=== PATIENT | female | born 2000 | race Caucasian/White ===

== ENCOUNTER 2021-12-02 10:20 | Observation (INO) | payer SELFPAY ==
[~2021-12-02] VITALS: Ht 152.4 cm; Wt 64.4 kg
[2021-12-02 11:00] VITALS: BP 94/55
== END 2021-12-02 13:09 | disposition home or self-care (01) ==
LOC: MLD 10:20
PROVIDERS: ADMIT Obstetrics & Gynecology; ATTEND Obstetrics & Gynecology
DX: O26.893 Other specified pregnancy related conditions, third trimester (principal); Z20.822 Contact with and (suspected) exposure to COVID-19; R10.9 Unspecified abdominal pain; Z3A.29 29 weeks gestation of pregnancy
CPT/HCPCS: 76805; 87426; G0378; Q0092; 59025; 81000

== ENCOUNTER 2022-02-22 10:39 | Inpatient (IN) | payer MEDICAID ==
[~2022-02-22] VITALS: Ht 160 cm; Wt 53.0 kg
[2022-02-22] MEDS ORDERED: METHYLERGONOVINE 0.2 MG/ML AMP IM PRN ×2 (12:15→22:35)
[2022-02-22] MEDS ORDERED: CARBOPROST 250 MCG/ML AMP IM PRN (12:15)
[2022-02-22] MEDS ORDERED: LACTATED RINGERS 1,000 ML IV SCH (12:15)
[2022-02-22 13:08] LABS: APPEARANCE,URINE CLEAR (CLEAR); BILIRUBIN,URINE NEGATIVE (NEGATIVE); BLOOD, URINE NEGATIVE (NEGATIVE); COLOR,URINE YELLOW (YELLOW); LEUKOCYTE ESTERASE ,URINE NEGATIVE (NEGATIVE); NITRITE, URINE NEGATIVE (NEGATIVE); UGLUCOSE NEGATIVE (NEGATIVE)
[2022-02-22 13:17] LABS: BARBITURATE, URINE NEGATIVE ng/ml (NEG <=200); BENZODIAZEPINE, URINE NEGATIVE ng/mL (NEG <=200); CANNABINOID, URINE NEGATIVE ng/mL (NEG <=50); COCAINE, URINE NEGATIVE ng/mL (NEG <=300); OPIATE, URINE NEGATIVE ng/mL (NEG <=2000); PHENCYCLIDINE SCREEN,URINE NEGATIVE ng/mL (NEG <=25)
[2022-02-22 13:20] LABS: BASOPHILS % (AUTO) 0.4 % (0.0-2.0); EOSINOPHILS % (AUTO) 0.3 % (0.0-4.0); HEMATOCRIT 35.9 % (36-48); HEMOGLOBIN 11.9 g/dL (12.0-16.0); LYMPHOCYTES # (AUTO) 1.6 K/uL (2.5-16.5); LYMPHOCYTES % (AUTO) 18.5 % (20.5-51.1); MEAN CORPUSCULAR HEMOGLOBIN 28 pg (27-31); MEAN CORPUSCULAR HGB CONC 33 g/dL (33-37); MEAN CORPUSCULAR VOLUME 85.5 fL (80-94); MONOCYTES # (AUTO) 0.6 K/uL (0.8-1.0); NEUTROPHILS # (AUTO) 6.3 K/uL (1.8-7.7); NEUTROPHILS % (AUTO) 73.8 % (42.2-75.2); PLATELET COUNT (AUTO) 162 K/uL (140-450); RED CELL DISTRIBUTION WIDTH 13.4 % (11.6-13.7); WHITE BLOOD COUNT (AUTO) 8.5 K/uL (4.8-10.8)
[2022-02-22 13:33] LABS: ALBUMIN 2.6 g/dL (3.4-5.0); ANION GAP 12.3 (8-16); CARBON DIOXIDE 24.3 mmol/L (21-32); CREATININE 0.5 mg/dL (0.6-1.3); POTASSIUM 3.6 mmol/L (3.5-5.1); TOTAL BILIRUBIN 0.4 mg/dL (0.0-1.0)
[2022-02-22 14:40] LABS: PROTHROMBIN TIME 9.7 secs (10.8-13.4)
[2022-02-22] MEDS ORDERED: MISOPROSTOL 25 MCG TAB VG PRN (14:45)
[2022-02-22] MEDS ORDERED: AMPICILLIN 2,000 MG in NACL 0.9% 100 ML IV ONE (16:30)
[2022-02-22] MEDS ORDERED: AMPICILLIN 2,000 MG VIAL ONE (16:49)
[2022-02-22] MEDS ORDERED: OXYTOCIN 20 UNITS in LACTATED RINGERS 1,000 ML IV SCH (18:25)
[2022-02-22] MEDS ORDERED: MORPHINE SULFATE 2 MG/ML SYR IVP PRN (18:25)
[2022-02-22] MEDS ORDERED: ONDANSETRON 4 MG/2 ML VIAL ONE (18:36)
[2022-02-22] MEDS ORDERED: MORPHINE SULFATE 10 MG/ML VIAL ONE (18:37)
[2022-02-22] MEDS: ONDANSETRON 4 MG/2 ML VIAL IVP PRN ×2 (18:40→23:53)
[2022-02-22] MEDS ORDERED: ROPIVACAINE 0.2%/NS PREMIX 200 ML EPI ONE (19:22)
[2022-02-22] MEDS ORDERED: ROPIVACAINE 0.2%/NS PREMIX 100 ML EPI SCH (19:45)
[2022-02-22] MEDS ORDERED: OXYTOCIN 20 UNITS/LR PREMIX 1,000 ML IV ONE (21:33)
[2022-02-22] MEDS ORDERED: AMPICILLIN 1,000 MG VIAL ONE (21:34)
[2022-02-22] MEDS ORDERED: AMPICILLIN 1,000 MG in NACL 0.9% 50 ML IV SCH (22:00)
[2022-02-22] MEDS ORDERED: oxyCODONE/APAP 5/325 MG 1 TAB TAB PO PRN (22:35)
[2022-02-22] MEDS ORDERED: BENZOCAINE/MENTHOL 20%-0.5% 60 GM CAN TP PRN (22:35)
[2022-02-22] MEDS ORDERED: METHYLERGONOVINE 0.2 MG TAB PO PRN (22:35)
[2022-02-22] MEDS ORDERED: OXYTOCIN 10 UNITS/ML VIAL IM PRN (22:35)
[2022-02-22] MEDS ORDERED: TEMAZEPAM 15 MG CAP PO PRN (22:35)
[2022-02-23] MEDS: IBUPROFEN 800 MG TAB PO PRN (04:18)
[2022-02-23 05:51] LABS: HEMATOCRIT 33.8 % (36-48); HEMOGLOBIN 11.1 g/dL (12.0-16.0)
[2022-02-23] MEDS: oxyCODONE/APAP 5/325 MG 1 TAB TAB PO PRN ×3 (10:01→23:48)
--- NOTE | 2022-02-23 10:32 | NUR ---
PATIENT HAS BEEN SCREENED AND CATEGORIZED LOW NUTRITION RISK. PATIENT WILL BE SEEN WITHIN 7 DAYS OF ADMISSION. 03/01/22 REVIEWED BY RAFA [address]
[2022-02-23] MEDS ORDERED: DOCUSATE SOD/SENNA 50/8.6 MG 1 TAB PO SCH (21:00)
[2022-02-24] MEDS ORDERED: FLU VACCINE QS2022-23 0.5 ML SYR IMVAC ONE (00:10)
[2022-02-24] MEDS: IBUPROFEN 800 MG TAB PO PRN (03:14)
== END 2022-02-24 15:30 | disposition home or self-care (01) | DRG 560 ==
LOC: MLD 10:39 → MFCC 02-23 03:15
PROVIDERS: ADMIT Obstetrics & Gynecology; ATTEND Obstetrics & Gynecology
PROC: 10E0XZZ Delivery of Products of Conception, External Approach (ICD-10-PCS; principal; 2022-02-22)
PROC: 0KQM0ZZ Repair Perineum Muscle, Open Approach (ICD-10-PCS; 2022-02-22)
PROC: 3E0R3BZ Introduction of Anesthetic Agent into Spinal Canal, Percutaneous Approach (ICD-10-PCS; 2022-02-22)
PROC: 00HU33Z Insertion of Infusion Device into Spinal Canal, Percutaneous Approach (ICD-10-PCS; 2022-02-22)
DX: O48.0 Post-term pregnancy (principal); Z37.0 Single live birth; O70.1 Second degree perineal laceration during delivery; Z3A.41 41 weeks gestation of pregnancy; Z20.822 Contact with and (suspected) exposure to COVID-19
CPT/HCPCS: 36415; 51702; 59200; 59409; 80053; 80305; 81003; 85018; 85025; 85610; 85730; 86592; 86762; 86886; 86900; 86901; 87340; 87653-90; J0290; J2270; J2405; J2590; J2795; J7120